=== PATIENT | male | born 1985 | race Caucasian/White ===

== ENCOUNTER 2017-11-28 11:35 | Emergency (ER) | payer BC, OTHER ==
[~2017-11-28] VITALS: Ht 175.3 cm; Wt 155.0 kg
[~2017-11-28 11:35] MED LIST: TOPR25TA2 PO
[2017-11-28 11:40] VITALS: BP 218/109; PULSE 96; RESP 18; TEMP 97.7; O2SAT 96
[2017-11-28 12:15] LABS: AUTOMATED NEUTROPHIL # 2.8 TH/MM3 (1.8-7.7); BASOPHIL # 0.1 TH/MM3 (0-0.2); EOSINOPHIL # 0.1 TH/MM3 (0-0.4); EOSINOPHIL % 1.9 % (0.0-4.0); HEMATOCRIT 48.1 % (39.0-51.0); HEMOGLOBIN 17.2 GM/DL (13.0-17.0); LYMPH % 43.3 % (9.0-44.0); LYMPHOCYTE # 2.7 TH/MM3 (1.0-4.8); MEAN CELL VOLUME 102.8 FL (80.0-100.0); MEAN CORPUSCULAR HEMOGLOBIN 36.8 PG (27.0-34.0); MEAN CORPUSCULAR HGB CONC 35.8 % (32.0-36.0); MEAN PLATELET VOLUME 6.9 FL (7.0-11.0); MONO % 9.5 % (0.0-8.0); MONOCYTE # 0.6 TH/MM3 (0-0.9); NEUT % 44.3 % (16.0-70.0); PLATELET COUNT 200 TH/MM3 (150-450); RED BLOOD COUNT 4.68 MIL/MM3 (4.50-5.90); RED CELL DISTRIBUTION WIDTH 13.4 % (11.6-17.2); WHITE BLOOD COUNT 6.3 TH/MM3 (4.0-11.0)
--- NOTE | 2017-11-28 12:16 | RADRPT ---
EXAM DATE/TIME: 11/28/2017 12:08 [place] COMPARISON: No previous studies available for comparison. INDICATIONS : Dizziness and chest discomfort on and off for 6 months. MEDICAL HISTORY : Hypertension. SURGICAL HISTORY : None. ENCOUNTER: Initial ACUITY: 4 - 6 months PAIN SCORE: 0/10 LOCATION: Bilateral chest FINDINGS: PA and lateral views of the chest demonstrate a normal-sized cardiac silhouette. There is no effusion , consolidation, or pneumothorax. The bones and soft tissues demonstrate no acute abnormality. CONCLUSION: No acute cardiopulmonary abnormality is identified. Alexander Hansen MD on November 28, 2017 at 12:14 Board Certified Radiologist. This report was verified electronically.
[2017-11-28 12:30] LABS: BICARBONATE 20.8 MEQ/L (21.0-32.0); BLOOD UREA NITROGEN 7 MG/DL (7-18); CALCIUM 8.8 MG/DL (8.5-10.1); CHLORIDE 104 MEQ/L (98-107); CREATININE 0.92 MG/DL (0.60-1.30); GLOMERULAR FILTRATION RATE 96 ML/MIN (>89); GLUCOSE,RANDOM 133 MG/DL (74-106); SODIUM (NA) 138 MEQ/L (136-145)
[2017-11-28 12:34] LABS: TROPONIN I LESS THAN 0.02 NG/ML (0.02-0.05)
[2017-11-28 13:08] VITALS: BP_SYST 143; BP_SYST 144; BP_DIAS 86; BP_DIAS 87; RESP 15; RESP 16
[2017-11-28] MEDS ORDERED: hydrOXYzine PAMOATE 25 MG CAP PO ONE (13:30)
[2017-11-28] MEDS ORDERED: VIST25CA PO (13:46)
--- NOTE | 2017-11-28 13:46 | PD ---
HPI Chief Complaint: Dizziness Time Seen by Provider: 12:35 Travel History International Travel<30 days: No Contact w/Intl Traveler<30days: No Traveled to known affect area: No History of Present Illness HPI 32-year-old male presents to emergency department with complaint of dizziness that has been on and off today. Has history of anxiety and says he feels anxious. Reports being an alcoholic and had his last drink prior to arrival. Says he drinks at least 10 shots daily. He followed up with primary care provider yesterday and he was given Librium because he wants to stop drinking. He has not filled the prescription or started taking it. He does not take medications for his anxiety. Denies chest pain, shortness of breath, abdominal pain, nausea, vomiting. Denies headache, lightheadedness, change in mentation, confusion, disorientation, focal deficits or weakness. He is complaining of his chest feeling full and pressure and says this is normal feeling when he feels anxious. He has history of heart murmur. Denies family or herself cardiac history. Denies tobacco use. Denies illicit drug use. Says his dizziness is worse with walking around. Better with sitting. He has not taken any medications or trying treatments to alleviate his symptoms. Primary care provider is [facility]. No known allergies. History of hypertension and is compliant with his medications. Has no other medical complaints. No other modifying factors or associated signs and symptoms PFSH Past Medical History Anxiety: Yes Cardiovascular Problems: Yes (HTN) Hypertension: Yes Immunizations Current: Yes Past Surgical History Surgical History: No Previous Surgery Eye Surgery: Yes Social History Alcohol Use: No Tobacco Use: Yes (2 LITTLE CIGARS A DAY FOR A YEAR) Substance Use: No Allergies-Medications (Allergen,Severity, Reaction): Coded Allergies: No Known Allergies (Verified Adverse Reaction, Unknown, 11/28/17) Reported Meds & Prescriptions Reported Meds & Active Scripts Active Vistaril (Hydroxyzine Pamoate) 25 Mg Cap 25 Mg PO TID PRN Reported Toprol Xl (Metoprolol Succinate) 25 Mg Tabcr 0 Mg PO DAILY UNKNOWN DOSE Review of Systems Except as stated in HPI: all other systems reviewed are Neg Physical Exam Narrative GENERAL: Well-nourished, well-developed male patient, in no acute distress SKIN: Warm and dry. HEAD: Atraumatic. Normocephalic. No facial droop noted. Tongue midline. Shoulder shrug equal. Finger to nose test normal. EYES: Pupils equal and round at 3 mm with brisk reaction. No scleral icterus. No injection or drainage. PERRLA. EOMI. ENT: Mucosa pink and moist. Airway patent. NECK: Trachea midline. No lymphadenopathy. CARDIOVASCULAR: Regular rate and rhythm. Murmur appreciated. RESPIRATORY: No accessory muscle use. Breath sounds clear and equal bilaterally. No retractions or tachypnea. GASTROINTESTINAL: Abdomen soft, non-tender, nondistended. Positive bowel sounds. No hepato-splenomegaly, or palpable masses. No guarding. MUSCULOSKELETAL: No obvious deformities. No clubbing. No cyanosis. No edema. NEUROLOGICAL: Awake and alert. Oriented 4. No obvious cranial nerve deficits. Motor grossly within normal limits. Normal speech. No ataxia. No mid -line drift. No upper or lower extremity drift. [employer] strength equal bilaterally. Sensory intact and equal bilaterally. Moves all extremities. Active plantar and dorsiflexion and strength equal bilaterally. 5/5 strength to all extremities. PSYCHIATRIC: Appropriate mood and affect; insight and judgment normal. Data Data Last Documented VS Vital Signs Date Time Temp Pulse Resp B/P (MAP) Pulse Ox O2 Delivery O2 Flow Rate FiO2 11/28/17 13:08 100 15 143/86 (105) 98 16 144/87 (106) 11/28/17 11:40 97.7 96 Orders Orders Electrocardiogram (11/28/17 11:44) Complete Blood Count With Diff (11/28/17 11:44) Basic Metabolic Panel (Bmp) (11/28/17 11:44) Ckmb (Isoenzyme) Profile (11/28/17 11:44) Troponin I (11/28/17 11:44) Chest, Pa & Lat (11/28/17 11:44) CKMB (11/28/17 12:00) CKMB% (11/28/17 12:00) Orthostatic Vital Signs (11/28/17 13:29) Hydroxyzine Pamoate (Vistaril) (11/28/17 13:30) Ed Discharge Order (11/28/17 13:46) Labs Laboratory Tests Test 11/28/17 12:00 White Blood Count 6.3 TH/MM3 Red Blood Count 4.68 MIL/MM3 Hemoglobin 17.2 GM/DL Hematocrit 48.1 % Mean Corpuscular Volume 102.8 FL Mean Corpuscular Hemoglobin 36.8 PG Mean Corpuscular Hemoglobin Concent 35.8 % Red Cell Distribution Width 13.4 % Platelet Count 200 TH/MM3 Mean Platelet Volume 6.9 FL Neutrophils (%) (Auto) 44.3 % Lymphocytes (%) (Auto) 43.3 % Monocytes (%) (Auto) 9.5 % Eosinophils (%) (Auto) 1.9 % Basophils (%) (Auto) 1.0 % Neutrophils # (Auto) 2.8 TH/MM3 Lymphocytes # (Auto) 2.7 TH/MM3 Monocytes # (Auto) 0.6 TH/MM3 Eosinophils # (Auto) 0.1 TH/MM3 Basophils # (Auto) 0.1 TH/MM3 CBC Comment DIFF FINAL Differential Comment Blood Urea Nitrogen 7 MG/DL Creatinine 0.92 MG/DL Random Glucose 133 MG/DL Calcium Level 8.8 MG/DL Sodium Level 138 MEQ/L Potassium Level 3.7 MEQ/L Chloride Level 104 MEQ/L Carbon Dioxide Level 20.8 MEQ/L Anion Gap 13 MEQ/L Estimat Glomerular Filtration Rate 96 ML/MIN Total Creatine Kinase 197 U/L Creatine Kinase MB 3.5 NG/ML Troponin I LESS THAN 0.02 NG/ML MDM Medical Decision Making Medical Screen Exam Complete: Yes Emergency Medical Condition: Yes Medical Record Reviewed: Yes Differential Diagnosis Dizziness, vertigo, anxiety, ME, ACS, arrhythmia, electrolyte imbalance Narrative Course 32-year-old male with history of anxiety and dizziness that has been on and off today. He admits to being an alcoholic and would like to quit drinking. He saw his primary care provider yesterday and he was prescribed lithium. He is complaining of some chest fullness and pressure, but says he feels this when he feels anxious. And he says he feels anxious now. CBC, BMP unremarkable. Troponin less than 0.02. EKG with normal sinus rhythm; without ST elevation or depression; Reviewed by Dr. Tripp. Orthostatic vital signs are unremarkable. Vistaril administered in the ER. I discussed labs and findings with Dr. Tripp and he agrees with discharge. Vistaril prescribed for home. Instructed patient to follow-up with psychiatrist. Instructed patient to follow up with primary care provider. Patient verbalizes understanding and agreement with treatment plan. Patient is medically cleared and stable for discharge. Discussed reasons to return to the emergency department. Patient agrees with treatment plan. The patients vital signs are stable and the patient is stable for outpatient follow-up and treatment. Patient discharged home, stable and in no acute distress. Diagnosis Primary Impression: Dizziness Additional Impression: Anxiety Referrals: Primary Care Physician Psychiatrist Patient Instructions: Anxiety (ED), Chest Pain (ED), Dizziness (ED), General Instructions Additional Instructions: Vistaril as prescribed and as needed for anxiety [id number] meclizine as directed and as needed for dizziness Follow-up with primary care provider Follow-up with psychiatry Return to the emergency department immediately for worsening of symptoms Med/Other Pt SpecificInfo: Prescription(s) given Scripts Hydroxyzine Pamoate (Vistaril) 25 Mg Cap 25 MG PO TID Y for ANXIETY, #30 CAP 0 Refills Prov: Aurea Barnett 11/28/17 Disposition: 01 DISCHARGE HOME Condition: Stable Aurea Barnett Nov 28, 2017 13:46
--- NOTE | 2017-11-30 09:24 | EKG ---
Date Performed: 11/28/2017 Time Performed: 11:48:46 PTAGE: 32 years EKG: Sinus rhythm BORDERLINE LEFT AXIS DEVIATION BORDERLINE ECG NO PREVIOUS TRACING DOCTOR: Justin Wills Interpretating Date/Time 11/30/2017 09:18:15
== END 2017-11-28 14:45 | disposition home or self-care (01) ==
LOC: NEPD 11:35
DX: R42 Dizziness and giddiness (principal); F41.9 Anxiety disorder, unspecified; F10.20 Alcohol dependence, uncomplicated; I10 Essential (primary) hypertension; R94.31 Abnormal electrocardiogram [ECG] [EKG]; Z72.0 Tobacco use
CPT/HCPCS: 71046; 80048; 82550; 82552; 84484; 85025; 93005; 99285; Q0177